=== PATIENT | male | born 1970 | race Two or more races ===

== ENCOUNTER 2020-02-10 07:49 | Emergency (ER) | payer MEDICAID ==
[~2020-02-10] VITALS: Ht 172.7 cm; Wt 93.0 kg
[2020-02-10 08:15] VITALS: BP 161/95
[2020-02-10] MEDS ORDERED: KETOROLAC 30MG/ML VIAL IM ONE (08:45)
[2020-02-10] MEDS ORDERED: MORPHINE SULFATE 10 MG/ML CPJ IM ONE (08:45)
== END 2020-02-10 09:05 | disposition left against medical advice (07) ==
LOC: ER 07:49
DX: R10.32 Left lower quadrant pain (principal)
CPT/HCPCS: 99283